=== PATIENT | male | born 1980 | race Caucasian/White ===

== ENCOUNTER 2023-05-16 16:03 | Emergency (ER) | payer MEDICAID, SELFPAY ==
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
[2023-05-16 16:23] VITALS: BP 120/70; PULSE 76; RESP 18; TEMP 37.1; O2SAT 99; BMI 33.5
[2023-05-16 20:13] VITALS: BP 124/66; PULSE 72; RESP 16; TEMP 36.4; O2SAT 98
== END 2023-05-16 21:03 | disposition home or self-care (01) ==
PROVIDERS: Emergency Provider Emergency Medicine
DX: L02.01 Cutaneous abscess of face (principal)
CPT/HCPCS: 10060; 99282; 99284